=== PATIENT | female | born 2005 | race Caucasian/White ===

== ENCOUNTER 2024-12-19 03:51 | Emergency (ER) | payer OTHER ==
[~2024-12-19] VITALS: Ht 162.5 cm; Wt 62.8 kg
[2024-12-19] MEDS ORDERED: HYDROCODONE-AC1 EAC1 PO (05:01)
== END 2024-12-19 05:07 | disposition home or self-care (01) ==
LOC: ED 03:51
DX: S92.314A Nondisplaced fracture of first metatarsal bone, right foot, initial encounter for closed fracture (principal); X50.1XXA Overexertion from prolonged static or awkward postures, initial encounter; Y93.89 Activity, other specified; Y92.89 Other specified places as the place of occurrence of the external cause; Y99.8 Other external cause status